=== PATIENT | female | born 1985 | race American Indian/Alaskan Native ===

== ENCOUNTER 2017-01-07 10:14 | Outpatient (CLI) | payer OTHER ==
--- NOTE | 2017-01-07 13:18 | Ultrasound Report ---
THYROID ULTRASOUND:01/07/17 10:14:00 CLINICAL: Nontoxic goiter FINDINGS: High-resolution ultrasound demonstrated a normal size thyroid with a normal overall echo pattern. The right lobe measures 4.1 x 1.7 x 1.5cm. The left lobe measures 3.8 x 1.4 x 1.6. The isthmus measures 3.3 mm in AP thickness. A right lower pole cyst measures 1.1 x 1.2 x 0.8 cm. It has a smooth thin wall and contains low-level internal echoes. A complex left lower lobe nodule measures 0.7 x 0.4 x 0.4 cm. It is hypoechoic with at least one septation within it. IMPRESSION: A normal thyroid except for a benign 1.2 cm right lower pole cyst and a probably benign 7 mm left lower pole nodule. Recommend a followup thyroid ultrasound in six months.
== END 2017-01-07 10:15 | disposition home or self-care (01) ==
LOC: SPVWC 10:14
PROVIDERS: ATTEND Internal Medicine
DX: E04.1 Nontoxic single thyroid nodule (principal)
CPT/HCPCS: 76536